=== PATIENT | female | born 1965 | race Caucasian/White ===

== ENCOUNTER 2018-04-06 16:13 | Emergency (ER) | payer OTHER ==
[~2018-04-06] VITALS: Ht 165.1 cm; Wt 61.2 kg
[~2018-04-06 16:13] MED LIST: NKM
[2018-04-06] MEDS ORDERED: Norco 5mg/325mg tab ORAL ONE (17:30)
[2018-04-06] MEDS ORDERED: CYCLOBENZAPRINE10 MG ORAL (17:36)
[2018-04-06] MEDS ORDERED: NORCO 5-325 TA1 EACH ORAL (17:36)
[2018-04-06] MEDS ORDERED: IBUPROFEN600 MG ORAL (17:36)
[2018-04-06 18:12] VITALS: BP 142/74
[2018-04-06 18:55] VITALS: BP_SYST 118; BP_SYST 142; BP_DIAS 64; BP_DIAS 74
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
--- NOTE | 2018-04-07 09:07 | Diagnostic Imaging Report ---
Indication: Headache and head trauma Technique: Contiguous 5 mm thick transaxial imaging of the head obtained in a Siemens Sensation [address] scanner. Soft tissue and bone windows generated. Automatic Exposure Control was utilized. Total Dose length Product (DLP): 1369.[address] Dose Index Volume (CTDIvol): 70.38 mGy Comparison: none Findings: The CT head is done for trauma. There is incidental mild, nonspecific patchy scattered areas of low-attenuation involving white matter tracts mostly in the periventricular distribution. The size and configuration of the cortical sulci, basal cisterns, and ventricles are within normal limits for age. There is no mass effect, midline shift, or edema identified. There is no evidence of acute hemorrhage or abnormal intra-axial or extra-axial fluid collections. The bones and soft tissues are unremarkable. Impression: No mass effect, edema or acute bleed. Incidental patchy, mild white matter low attenuation, nonspecific. Consider MRI for further evaluation as warranted clinically. The CT scanner at [facility] is accredited by the [employer] and the scans are performed using dose optimization techniques as appropriate to a performed exam including Automatic Exposure control.
--- NOTE | 2018-04-07 11:52 | Diagnostic Imaging Report ---
Indication: Back pain Comparison: None Findings: 3 views of the lumbar spine were obtained. No acute fracture or malalignment is identified. Vertebral body heights and disk spaces are well maintained. Posterior elements are unremarkable. Impression: No acute findings.
--- NOTE | 2018-04-07 12:12 | Diagnostic Imaging Report ---
Indication: Neck Pain Findings: 3 views of the cervical spine were obtained. Some loss of cervical lordosis noted. No fracture or malalignment identified. Mild narrowing of the C5-6 disc noted. IMPRESSION: Degenerative disc disease at C5-6
--- NOTE | 2018-04-07 12:17 | Diagnostic Imaging Report ---
Indication: Chest pain Comparison: None A single view chest radiograph was obtained. Findings: Cardiomediastinal appearance is within normal limits for age. The lungs are clear. Pulmonary vascularity is appropriate. The diaphragmatic contour is smooth and costophrenic angles are sharp. No pleural effusions are identified. The bones are unremarkable. Impression: No acute findings
== END 2018-04-06 18:55 | disposition home or self-care (01) ==
LOC: EDBD 16:13 → EMR 18:28
DX: S66.912A Strain of unspecified muscle, fascia and tendon at wrist and hand level, left hand, initial encounter (principal); S16.1XXA Strain of muscle, fascia and tendon at neck level, initial encounter; V43.52XA Car driver injured in collision with other type car in traffic accident, initial encounter; S39.012A Strain of muscle, fascia and tendon of lower back, initial encounter; S09.90XA Unspecified injury of head, initial encounter; Y92.410 Unspecified street and highway as the place of occurrence of the external cause; M50.322 Other cervical disc degeneration at C5-C6 level
CPT/HCPCS: 70450; 71045; 72020; 72040; 99284